=== PATIENT | female | born 1975 | race Caucasian/White ===

== ENCOUNTER → 2016-12-22 19:25 | Outpatient (CLI) | payer OTHER | END | disposition home or self-care (01) | LOC: D.LABREF 19:25 | DX: L98.9 Disorder of the skin and subcutaneous tissue, unspecified (principal) ==

== ENCOUNTER → 2016-12-30 19:19 | Outpatient (CLI) | payer OTHER | END | disposition home or self-care (01) | LOC: D.LABREF 19:19 | DX: D22.9 Melanocytic nevi, unspecified (principal) ==

== ENCOUNTER 2017-08-02 06:24 | Day surgery (SDC) | payer OTHER ==
[2017-08-01 15:47] LABS: HEMATOCRIT 36.8 % (36.0-48.0); HEMOGLOBIN 12.2 g/dL (12-16); MCH 32.6 pg (26.0-34.0); MCHC 33.2 g/dL (31.0-37.0); MCV 98.4 fL (80.0-100.0); MEAN PLATELET VOLUME 9.1 fL (7.4-10.4); RBC 3.74 10x6/uL (4.00-5.40); RDW 12.7 % (11.5-14.5); WBC 6.9 10x3/uL (4.8-10.8)
[2017-08-02] VITALS (9 sets, daily range): BP systolic 107–117; BP diastolic 65–75
[~2017-08-02 06:24] MED LIST: HYDROCODON-ACE1 EAC7 PO
--- NOTE | 2017-08-02 17:10 | NUR ---
PT REQUESTS PAIN RX. ANESTHESIA ADVISED. ORDER REC'D.
--- NOTE | 2017-08-02 17:27 | NUR ---
NORCO 5 ONE PO GIVEN.
--- NOTE | 2017-08-02 19:49 | NUR ---
RECEIVED PT VIA STRETCHER FROM POST D&C PER DR CHANG, PT TO ROOM 1215, PT TRANSFERS SELF TO TO BED WITH NO DIFFICULTY, IV IN IN LEFT WRIST INTACT WITH NO REDNESS OR EDEMA, LR TO PUMP PER MD ORDERS, VS INITIATED, PT C/O CRAMPING, INFORMED PT THAT I WILL SEE WHAT IS ORDERED FOR PAIN AND BRING IT IN, PT VERBALIZES UNDERSTANDING, PT INST TO USE CALL LIGHT WHEN NEEDING TO GET UP TO VOID, PT VERBALIZES UNDERSTANDING, LIGHT BLEEDING NOTED ON CRUZ PAD, POC DISCUSSED WITH PT, PT DENIES QUESTIONS, PT ORIENTED TO ROOM, BED IN LOW POSITION, SIDE RAILS X 2, CALL LIGHT IN REACH, S/O AT BEDSIDE
--- NOTE | 2017-08-02 20:05 | NUR ---
ADM TORADOL SIVP PER MD ORDERS, SEE EMAR, PT REQUESTED AND SERVED [place] SOD[place], DENIES FURTHER NEEDS AT THIS TIME
--- NOTE | 2017-08-02 20:35 | NUR ---
PT COMPENSATION AGENT LIGHT, PT UP TO BR WITH ASSISTANCE, GAIT STEADY, VOIDED 900 MLS OF BLOOD TINGED URINE IN [place] HAT, SEVERAL LARGE CLOTS NOTED, PT CLEANED UP WITH WET WARM WASH CLOTS, CRUZ PAD AND PANTIES PLACED, PT BACK TO BED, INFORMED PT THAT I WILL BE KEEPING HER FOR A LITTLE BIT LONGER BEFORE DISCHARGE TO WATCH HER BLEEDING, PT VERBALIZES UNDERSTANDING, DENIES NEEDS AT THIS TIME
--- NOTE | 2017-08-02 20:45 | NUR ---
DR CHARLENE MADERA
--- NOTE | 2017-08-02 21:02 | NUR ---
PT WATCHING TV, INFORMED PT THAT I PUT A CALL INTO DR CHANG, PT VERBALIZES UNDERSTANDING, DENIES NEEDS AT THIS TIME, S/O AT BEDSIDE
--- NOTE | 2017-08-02 21:25 | NUR ---
DR CHANG CALLS UNIT, REPORT OF VS, OUTPUT, LARGE MULTIPLE CLOTS/BLEEDING, ADM TORADOL, RECEIVED IN REPORT FROM RR THAT PT HAD RECEIVED METHERGINE, AND WHEN TO ADM DOXYCYCLINE, ORDERS TO GO AHEAD AND ADM DOXYCYCLINE, DO NOT GIVE METHERGINE SINCE IT WAS GIVEN IN SURGERY PER REPORT FROM RR NURSE AND ANESTHESIA RECORDS, MAY KEEP PT OVERNIGHT IF PT AND I FEEL LIKE SHE NEEDS TO STAY DUE TO BLEEDING, ADM AMBIEN 5MG FOR SLEEP IF PT DECIDES SHE WANTS TO STAY ALL NIGHT
--- NOTE | 2017-08-02 22:05 | NUR ---
PT UP TO BR BY SELF, GAIT STEADY, MOD BLEEDING NOTED ON PAD AND BLUE CHUX, PT VOIDED 300 MLS OF LIGHT BLOOD TINGED URINE BY SELF WITH NO DIFFICULTY, NO CLOTS NOTED AT THIS TIME, CRUZ CARE DONE WITH WET WARM WASH CLOTHS, ASSISTED PT WITH CRUZ PAD AND PANTIES, PT BACK TO BED, INFORMED PT THAT I WILL CONTINUE TO WATCH BLEEDING FOR AT LEAST ANOTHER HOUR BEFORE DECIDING ON D/C, PT VERBALIZES UNDERSTANDING, REQUESTED AND SERVED SANDWICH TRAY TO PT AND S/O, PT DENIES FURTHER NEEDS
--- NOTE | 2017-08-02 22:34 | NUR ---
PT WATCHING TV, SPOUSE RAN HOME TO FEED THE DOGS, PT REPORTS "FEELING FINE", INFORMED PT THAT I WILL BE BACK SHORTLY AND WE WILL CHECK BLEEDING, PT VERBALIZES UNDERSTANDING, DENIES NEEDS AT THIS TIME
--- NOTE | 2017-08-02 23:08 | NUR ---
PT UP TO BR BY SELF, GAIT STEADY, SCANT VAG BLEEDING NOTED, NO CLOTS, PT REQUESTING TO BE DISCHARGED NOW, INFORMED PT THAT I WILL GET PAPERWORK TOGETHER AND D/C HER HOME, S/O IN ROOM
[2017-08-02] MEDS ORDERED: TYLENOL #4 W/CO1 TAB PO (23:26)
--- NOTE | 2017-08-02 23:35 | NUR ---
PT READY TO GO HOME, WENT OVER ALL D/C PAPERWORK WITH PT, PT VERBALIZES UNDERSTANDING, PT PROVIDED ALL PAPERWORK AND PRESCRIPTION, IV D/C'ED, TIP INTACT, PRESSURE HELD PER PT, BANDAID APPLIED, PT READY TO GET UP AND GET DRESSED, INFORMED PT THAT I WILL BE BACK IN A FEW MINUTES TO D/C VIA WC, PT VERBALIZES UNDERSTANDING, DENIES FURTHER NEEDS OR QUESTIONS AT THIS TIME, FOB AT BEDSIDE
--- NOTE | 2017-08-02 23:47 | NUR ---
PT D/C/ED VIA WC PER [facility] RN, SPOUSE AT SIDE, PT HAS ALL BELONGINGS AND PAPERWORK IN HAND
--- NOTE | 2017-10-04 08:11 | OP ---
PATIENT NAME: SHAINA JOHNSTON MEDICAL RECORD: [id number] :77 LOCATION:[facility] ADMISSION DATE: SURGEON: PING CHANG MD DATE OF OPERATION: 08/02/2017 PREOPERATIVE DIAGNOSIS: Missed . POSTOPERATIVE DIAGNOSIS: Missed . PROCEDURE PERFORMED: Dilation and evacuation. SURGEON: Ping Chang MD ANESTHESIOLOGIST: Donta Harris MD ANESTHESIA: General anesthetic with endotracheal intubation. FINDINGS: Uterus approximately 10-week size, moderate amounts of products of conception returned. Vaginal vault is unremarkable. ESTIMATED BLOOD LOSS: Less than or equal to 100 cc. FLUIDS: 950 cc of LR. URINE OUTPUT: Quantity sufficient prior to the procedure. COMPLICATIONS: None. DRAINS: None. INDICATIONS: The patient is a 41-year-old female with missed . The patient has been given options and desires definitive therapy for missed . DESCRIPTION OF PROCEDURE: After informed consent was assured, the patient was taken to the operating room, anesthetic was obtained without difficulty. The patient is now placed in stirrups and prepped and draped. A speculum was introduced and the cervix grasped. The cervix was dilated to accommodate a curved suction curette, which was passed to the fundus and suction applied. Products of conception removed on several passes. Sharp curettage was performed until good cry was obtained throughout. A single pass with the suction device removed all remaining clot and debris after curettage was performed. Sponge, lap and needle count was correct times 2. Single-tooth tenaculum was removed from the cervix and adequate hemostasis is noted. The patient was taken down from the stirrup and went to the recovery area in stable condition. TRANSINT:[id number] Voice Confirmation ID: [id number] DOCUMENT ID: [id number] OPERATIVE REPORT [id number] SHAINA JOHNSTON PING CHANG MD at 0811 CC: [id number] DICTATION DATE: 10/03/17714 CAVING GUIDE: 10/03/17 0838 [facility] 08/02/17 [facility] [address] [place] [address]
== END 2017-08-02 23:47 | disposition home or self-care (01) ==
LOC: D.OPS 06:24 → D.PAN 13:00 → D.OPS 13:00 → D.WS 19:30 → D.OPS 23:47
PROVIDERS: Anesthesiology
DX: O02.1 Missed abortion (principal); Z01.812 Encounter for preprocedural laboratory examination

== ENCOUNTER → 2018-08-02 15:37 | Outpatient (CLI) | payer OTHER ==
[~2018-08-02 15:37] MED LIST changes: +TYLENOL #4 W/CO1 TAB PO
== END | disposition home or self-care (01) ==
LOC: D.LDO 15:37
DX: O21.9 Vomiting of pregnancy, unspecified (principal); Z3A.08 8 weeks gestation of pregnancy

== ENCOUNTER → 2018-11-22 10:49 | Outpatient (CLI) | payer OTHER ==
[~2018-11-22 10:49] MED LIST changes: +PREPLUS CA-FE1 EACH PO
[2018-11-22 11:42] LABS: APPEARANCE CLEAR (CLEAR); BILIRUBIN NEGATIVE (NEGATIVE); COLOR YELLOW (YELLOW); GLUCOSE NEGATIVE (NEGATIVE); KETONE NEGATIVE (NEGATIVE); NITRITE NEGATIVE (NEGATIVE); PROTEIN NEGATIVE (NEGATIVE); UROBILINOGEN NORMAL (NORMAL)
== END | disposition home or self-care (01) ==
LOC: D.LDO 10:49
PROVIDERS: Obstetrics & Gynecology
DX: O26.892 Other specified pregnancy related conditions, second trimester (principal); Z3A.24 24 weeks gestation of pregnancy

== ENCOUNTER → 2019-01-26 10:23 | Outpatient (CLI) | payer SELFPAY ==
[2019-01-26 11:25] LABS: APPEARANCE CLEAR (CLEAR); BACTERIA FEW /hpf (NONE SEEN); BILIRUBIN NEGATIVE (NEGATIVE); COLOR YELLOW (YELLOW); EPITHELIAL CELLS 0-5 /hpf (0-5); GLUCOSE 100 mg/dL (NEGATIVE); KETONE NEGATIVE (NEGATIVE); NITRITE NEGATIVE (NEGATIVE); PROTEIN NEGATIVE (NEGATIVE); UROBILINOGEN NORMAL (NORMAL); WHITE CELLS - URINE OCC /hpf (0-5)
== END | disposition home or self-care (01) ==
LOC: D.LDO 10:23
PROVIDERS: ATTEND Obstetrics & Gynecology
DX: O26.893 Other specified pregnancy related conditions, third trimester (principal); Z3A.33 33 weeks gestation of pregnancy; M79.89 Other specified soft tissue disorders

== ENCOUNTER → 2019-02-06 09:20 | Outpatient (CLI) | payer SELFPAY | END | disposition home or self-care (01) | LOC: D.LDO 09:20 | PROVIDERS: ATTEND Obstetrics & Gynecology | DX: O09.513 Supervision of elderly primigravida, third trimester (principal); Z3A.35 35 weeks gestation of pregnancy ==

== ENCOUNTER → 2019-02-09 09:20 | Outpatient (CLI) | payer SELFPAY ==
[~2019-02-09 09:20] MED LIST changes: +CLEOCIN HCL300 MG PO; +PERCOCET 7.5/321 TAB PO; +TANDEM DUAL AC106 MG PO
== END | disposition home or self-care (01) ==
LOC: D.LDO 09:20
DX: O09.523 Supervision of elderly multigravida, third trimester (principal); Z3A.35 35 weeks gestation of pregnancy

== ENCOUNTER → 2019-02-13 09:45 | Outpatient (CLI) | payer SELFPAY | END | disposition home or self-care (01) | LOC: D.LDO 09:45 | DX: O26.893 Other specified pregnancy related conditions, third trimester (principal); Z3A.36 36 weeks gestation of pregnancy ==

== ENCOUNTER → 2019-02-16 11:52 | Outpatient (CLI) | payer SELFPAY ==
[~2019-02-16 11:52] MED LIST changes: -CLEOCIN HCL300 MG PO; -PERCOCET 7.5/321 TAB PO; -TANDEM DUAL AC106 MG PO
== END | disposition home or self-care (01) ==
LOC: D.LDO 11:52
PROVIDERS: ATTEND Obstetrics & Gynecology
DX: O09.513 Supervision of elderly primigravida, third trimester (principal); Z3A.36 36 weeks gestation of pregnancy

== ENCOUNTER → 2019-02-20 11:25 | Outpatient (CLI) | payer SELFPAY | END | disposition home or self-care (01) | LOC: D.LDO 11:25 | PROVIDERS: ATTEND Obstetrics & Gynecology | DX: O09.513 Supervision of elderly primigravida, third trimester (principal); Z3A.27 27 weeks gestation of pregnancy ==

== ENCOUNTER → 2019-02-23 09:01 | Outpatient (CLI) | payer OTHER | END | disposition home or self-care (01) | LOC: D.LDO 09:01 | PROVIDERS: ATTEND Obstetrics & Gynecology | DX: O09.513 Supervision of elderly primigravida, third trimester (principal); Z3A.37 37 weeks gestation of pregnancy ==

== ENCOUNTER → 2019-02-27 12:34 | Outpatient (CLI) | payer OTHER ==
[~2019-02-27 12:34] MED LIST changes: +CLEOCIN HCL300 MG PO; +PERCOCET 7.5/321 TAB PO; +TANDEM DUAL AC106 MG PO
== END | disposition home or self-care (01) ==
LOC: D.LDO 12:34
PROVIDERS: ATTEND Obstetrics & Gynecology
DX: O09.513 Supervision of elderly primigravida, third trimester (principal)

== ENCOUNTER 2019-02-28 05:19 | Inpatient (IN) | payer OTHER ==
[~2019-02-28] VITALS: Ht 165.1 cm; Wt 102.1 kg
[2019-02-28] VITALS (20 sets, daily range): BP systolic 80–112; BP diastolic 45–71; Ht 165.1 cm; Wt 102.1 kg
[~2019-02-28 05:19] MED LIST changes: -CLEOCIN HCL300 MG PO; -PERCOCET 7.5/321 TAB PO; -TANDEM DUAL AC106 MG PO
[2019-02-28 05:59] LABS: HEMATOCRIT 32.4 % (36.0-48.0); HEMOGLOBIN 10.9 g/dL (12-16); MCH 32.2 pg (26.0-34.0); MCHC 33.6 g/dL (31.0-37.0); MCV 95.9 fL (80.0-100.0); MEAN PLATELET VOLUME 9.8 fL (7.4-10.4); RBC 3.38 10x6/uL (4.00-5.40); RDW 13.9 % (11.5-14.5)
--- NOTE | 2019-02-28 08:49 | NUR ---
FUNDUS PALPATED: FIRM AND MIDLINE.
--- NOTE | 2019-02-28 09:15 | NUR ---
ASSESSMENT COMPLETED. SEE FLOWSHEET. FUNDUS FIRM, U/1, MODERATE RUBRA LOCHIA, NO CLOTS EXPELLED. ABDOMEN PALPATES SOFT. PT HAS LARGE WHITE DRESSING OVER LOW TRANSVERSE INCISION, C/D/I. ICE PACK PLACED OVER GOWN TO INCISION. PT DENIES NAUSEA, VOMITING, OR SOB, OR DIFFICULTY BREATHING. SIG OTHER AT BEDSIDE. LEMON [place] SODA SERVED TO PT PER HER REQUEST. SRUP X2, CALL LIGHT AND PHONE WITHIN REACH. SEE EMAR FOR ALL MEDS ADM BY THIS RN.
--- NOTE | 2019-02-28 11:25 | NUR ---
FUNDUS FIRM, U/1, SMALL RUBRA LOCHIA, NO CLOTS EXPELLED. INCENTIVE SPIROMETER DONE X 3, WELL. COUGHING EXERCISES DONE BY PT WELL. PT REPORTS PAIN "NEVER REALLY WENT AWAY, BUT IT FEELS LIKE IT IS STARTING TO HURT AGAIN", RATING PAIN 5/10. ICE PACK OVER GOWN TO INCISION. ABDOMEN PALPATES SOFT.
--- NOTE | 2019-02-28 11:45 | NUR ---
DR. CHANG CALLS TO UNIT, REPORT GIVEN TO MD THAT PT HAS REPORTED TORADOL AND DILAUDID ADM AT 0925 THIS AM HELPED A LITTLE, BUT REPORTS PAIN HAS STARTED TO COME BACK, RATING PAIN 5/10. TELEPHONE ORDER RECEIVED TO STOP FIRST DILADID ORDERS, AND REPLACE WITH DILAUDID 2 MG IV EVERY 4HRS PRN FOR MILD TO MODERATE PAIN, AND MAY ADM DILAUDID 4 MG IV EVERY 4HRS PRN FOR MODERATE TO SEVERE PAIN, MAY ADMINISTER UP TO 8 MG/HR.
--- NOTE | 2019-02-28 12:37 | NUR ---
PT REPORTS NO SOB, OR DIZZINESS, OR DIFFICULTY BREATHING. PT AWAKE AND TALKING WITH RN. BP'S NOTED. PT DENIES NAUSEA. Hali HEALY RN REQUESTED TO ROOM. PHONE CALL MADE TO DR. CHANG WITH REPORT GIVEN TO OF BP'S SINCE 1130, AND MHR REPORTED TO MD, AND O2 SAT'S. RESP EVEN AND UNLABORED AT 15/MIN. REPORT TO MD THAT ONLY 3 MG OF DILUDID WAS ADMINISTERED THIS TIME FOR PT'S C/O INCREASED PAIN, RATING 10/10, ABDOMEN PALPATING SOFT, WITH FUNDUS FIRM, SMALL RUBRA LOCHIA, PERIPADS CHANGED. PT REPORTS THE PAIN MEDICATION IS STARTING TO MAKE HER DROWSY. REPORT TO MD PT IS RECEIVING 20 UNITS PITOCIN AT 125 ML/HR. DR. CHANG STATES HE THINKS THIS IS A RESULT OF THE DILAUDID ADM, PT'S HEART RATE IS REMAINING STABLE IN THE 80'S-90'S POST OP, WITH OCCASIONAL LOWER 100'S MHR. NO NEW ORDERS RECEIVED, WILL CONTINUE TO MONITOR PT POST OP SECTION, AND POST PAIN MEDICATION ADM. PT'S AT BEDSIDE.
--- NOTE | 2019-02-28 12:48 | NUR ---
BP NOTED 91/50, MHR 89, O2 SAT 95 % ON ROOM AIR. RESP 16/MIN, EVEN AND UNLABORED.
--- NOTE | 2019-02-28 14:10 | NUR ---
REPORT CALLED TO DR. CHANG OF R 110'S-120'S. PT HAS ADEQUATE OUTPUT, PAIN IN UNDER CONTROL, BLEEDING IS SMALL, ABD PALPATES SOFT, FUNDUS FIRM, U/1, NO CLOTS. TELEPHONE ORDER RECEIVED TO DRAW H&H.
--- NOTE | 2019-02-28 15:00 | NUR ---
PHONE CALL MADE TO DR. CHANG'S CELL PHONE, NO ANSWER. WILL CALL BACK.
--- NOTE | 2019-02-28 15:05 | NUR ---
LAB HERE TO DRAW H & H.
[2019-02-28 15:08] LABS: HEMATOCRIT 30.5 % (36.0-48.0); HEMOGLOBIN 10.2 g/dL (12-16)
--- NOTE | 2019-02-28 15:30 | NUR ---
PT TRANSFERRED TO 1278 BY BED, PT MOVING SELF WITH MINIMAL ASSISTANCE. TRANSFERRED FROM BED SHE WAS ON IN 1227, TO BED IN 1278. SCD'S PLUGGED IN, WITH IV PITOCIN 20 UNITS INFUSING ON PUMP AT 125 ML/HR, ABDOMEN PALPATING SOFT, SMALL RUBRA LOCHIA, NO CLOTS. CLEAN TOWELS/CHUX, CLEAN GOWN/LINENS. NEW ICE PACK PLACED OVER GOWN TO INCISION. PT RATING PAIN TO INCISION NOW 5/10, BURNING AND CRAMPING. MEDICATION ADM RECORD REVIEWED WITH PT. PT DENIES SOB, DIFFICULTY BREATHING, DIZZINESS, OR NAUSEA. DEAL CATH CONTINUES TO DRAIN DARK YELLOW URINE. PT DENIES ALL OTHER NEEDS AT THIS TIME. SR UP X2, CALL LIGHT AND PHONE WITHIN REACH.
--- NOTE | 2019-02-28 17:10 | NUR ---
DR. CHANG IN ROOM SPEAKING WITH PT REGARDING ELEVATED MHR, ADHESIONS DURING SURGERY, AND PLAN OF CARE.
--- NOTE | 2019-02-28 17:15 | NUR ---
CT CALLS THE UNIT, AND REQUESTS BUN/CREATININE TO BE RUN FOR CHEST PE PROTOCOL. KACI IN THE LAB NOTIFIED.
[2019-02-28 17:24] LABS: CREATININE - SERUM 0.7 mg/dL (0.6-1.3)
--- NOTE | 2019-02-28 17:50 | NUR ---
CT HERE TO TAKE PT FOR SCAN.
--- NOTE | 2019-02-28 18:09 | NUR ---
RECEIVED PT FROM CT. PT DENIES SOB, DIZZINES, OR DIFFICULTY BREATHING. O2 SAT MONITOR IS 94%. PT CONTINUES TO USE INCENTIVE SPIROMETER AND COUGHING AND DEEP BREATHING EXERCISES WELL. BP 91/52, P125, R 18. Kanchan HYMAN LPN IN ROOM SPEAKING WITH PT REGARDING CARE. SRUP X2, CALL LIGHT AND PHONE WITHIN REACH.
--- NOTE | 2019-02-28 19:55 | NUR ---
PT. SITTING UP IN BED WITH HOB AT 30 DEGREES AND HOLDING BABY. FEMALE TOOK IN ORDER FOR ASSESSMENT TO BE DONE. AWAKE AND ORIENTED. SKIN WARM AND DRY. PT. INQUIRING WHEN SHE CAN EAT. INFORMED WOULD TRY TO GET RESULTS OF IMAGING TEST DONE AND THEN WE WOULD PROCEDE FROM THERE. DENIES ANY PAIN BUT STATES SHE SOME NAUSEA BUT SHE THINKS IF FROM NOT EATING. ABD. INCISION NOTED ON LOWER ABD. WITH LARGE DRESSING COVERING. DRESSING DRY AND INTACT. LOCHIA RUBRA SCANT. DEAL PATENT AND DRAINING WITH 75CC NOTED IN URINE METER AND BAG. SCDS ON AND FUNCTIONAL TO LOWER LEG. ICE CAP NOTED ON ABD. DRESSING. ENCOURAGED COUGH AND DEEP BREATHING. ASKED PT. ABOUT INCENTIVE SPIROMETER AND PT. REPORTS THAT SHE IS USING EVERY 30 MINUTES AND ABLE TO ACHIEVE OVER 2000 ACCORDING TO PT. BREATH SOUNDS CLEAR AND BOWEL SOUNDS AUDIBLE.
--- NOTE | 2019-02-28 20:13 | NUR ---
DR. CHANG CALLED AND INFORMED OF IMAGING REPORT. STATES TO PROCEDE WITH NORMALIZING. ORDERS. RECEIVED.
--- NOTE | 2019-02-28 20:14 | NUR ---
WHEN DR. CHANG CONTACTED WITH IMAGING RESULTS HE INQUIRED ABOUT PT'S VITAL SIGNS AND SHIFT ASSESSMENT VITAL SIGNS RELAYED TO MD. MD MENTIONED [facility] MATERNAL TACHYCARDIA STILL PRESENT WE COULD PROCEDE WITH NORMALIZING.
--- NOTE | 2019-02-28 20:23 | NUR ---
POC EXPLAINED TO PT. SANDWICH TRAY SERVED. BABY IN ROOM WITH FEMALE HOLDING AT PRESENT.
--- NOTE | 2019-02-28 20:24 | NUR ---
REPORT GIVEN TO Sarah DAY RN. TRANSFER OF CARE ACHIEVED.
--- NOTE | 2019-02-28 22:15 | NUR ---
PATIENT USING THE BREAST PUMP, DEAL CATHETER REMOVED WITHOUT INCIDENT 200ML JASON URINE NOTED IN CHAMBER. FRESH ICE PACK TO ABDOMEN, BED REMAINS LOCKED IN LOW POSITION, CALL HERNÁNDEZ AND TRAY TABLE IN REACH, PT ENCOURAGED TO CALL WITH ANY NEEDS. SCD BOOTS REMOVED.
--- NOTE | 2019-02-28 22:48 | NUR ---
INFANT SWADDLE PER PT REQUEST AND PLACED IN OPEN CRIB AT BEDSIDE. PAIN MEDICATION ADMINISTERED PER PT REQUEST, SEE EMAR
--- NOTE | 2019-02-28 23:50 | NUR ---
PATIENT RESTING QUIETLY WITH EYES CLOSED, INFANT REMAINS AT BEDSIDE IN OPEN CRIB. BED LOCKED IN LOW POSITION, SIDE RAILS UPX2, CALL HERNÁNDEZ AND TRAY TABLE IN REACH. WILL CONTINUE TO MONITOR
[2019-03-01] VITALS (8 sets, daily range): BP systolic 105–132; BP diastolic 56–79
--- NOTE | 2019-03-01 00:10 | NUR ---
PT ASSISTED UP TO BATHROOM WITH STEADY GAIT, VOIDED 100ML URINE WITHOUT DIFFICULTY, PERICARE DONE AND FRESH PAD AND PANTIES PLACED. PT BACK TO BED AND ENCOURAGED TO CALL WITH ANY FURTHER NEEDS.
--- NOTE | 2019-03-01 00:10 | NUR ---
BLEEDING SMALL,RUBRA, NO CLOTS NOTED.
--- NOTE | 2019-03-01 02:45 | NUR ---
PATIENT RESTING QUIETLY WITH EYES CLOSED, RESPIRATIONS EVEN AND NON LABORED, REMAINS AT BEDSIDE IN OPEN CRIB. NO DISTRESS NOTED, WILL CONTINUE TO MONITOR
--- NOTE | 2019-03-01 04:22 | NUR ---
PATIENT ASSISTED UP TO BATHROOM WITH STEADY GAIT, VOIDED WITHOUT DIFFICULTY APPX 100ML URINE, CLEAN PAD AND PANTIES PLACED AND PT BACK TO BED. PAIN MEDICATION ADMINISTERED AND INFANT CHAN TO PT FOR . ENCOURAGED TO CALL WITH ANY FURTHER NEEDS.
--- NOTE | 2019-03-01 04:22 | NUR ---
BLEEDING SMALL, RUBRA WITH ONE SMALL QUARTER SIZED CLOT NOTED
[2019-03-01 06:51] LABS: BASOPHILS 0.1 % (0-2); EOSINOPHILS 0.2 % (0-7); IMMATURE GRANULOCYTES 0.7 % (0-5); LYMPHOCYTES 12.2 % (15-50); MCH 32.3 pg (26.0-34.0); MCHC 33.3 g/dL (31.0-37.0); MCV 96.8 fL (80.0-100.0); MEAN PLATELET VOLUME 9.8 fL (7.4-10.4); MONOCYTES 6.3 % (2-11); NEUTROPHILS 80.5 % (40-80); RDW 14.3 % (11.5-14.5)
--- NOTE | 2019-03-01 07:00 | NUR ---
REPORT TO AM SHIFT TO ASSUME PATIENT CARE.
[2019-03-01 07:09] LABS: RBC 2.17 10x6/uL (4.00-5.40)
--- NOTE | 2019-03-01 07:18 | NUR ---
CRITICAL HEMOGLOBIN OF 7 CALLED FROM LAB TO THIS RN. WILL ASSESS PT AND NOTIFY MD.
[2019-03-01 07:24] LABS: RAPID PLASMA REAGIN Non Reactive (Non Reactive)
[2019-03-01 07:31] LABS: PLATELET COUNT 178 10x3/uL (130-400)
--- NOTE | 2019-03-01 07:36 | NUR ---
THIS RN TO ROOM FOR SHIFT ASSESSMENT AND VS. PT SITTING UP IN BED, SKIN TONE NOTED TO BE PALE. PT AAOx3. PT RATES PAIN 3/10. SHIFT ASSESSMENT COMPLETED, VS OBTAINED, SEE FLOWSHEET FOR DOC. TACHYCARDIA NOTED. PT REPORTS DIZZINESS UPON STANDING LAST TIME UP TO BR. SALINE LOCK PIV IN RIGHT FOREARM IS C/D/I WITH NO REDNESS, SWELLING, OR DRAINAGE. FF, ML, U/U. SMALL RUBRA LOCHIA NOTED TO PERIPADS. NO CLOTS. PT INSTRUCTED ON LOCHIA AND S/S TO REPORT. UNDERSTANDING VERBALIZED. MILD GENERALIZED EDEMA TO LE BILAT, NON-PITTING. NEGATIVE HOMANS SIGN. PT INSTRUCTED ON POC, UNDERSTANDING VERBALIZED. SRUx2, CL IN REACH. SIG OTHER AT BEDSIDE. AFSHAN RN TO ROOM AT THIS TIME. WILL CONT TO MONITOR.
--- NOTE | 2019-03-01 07:48 | NUR ---
DR CHANG PHONED WITH REPORT ON PT H/H, VS AND ASSESSMENT, INCLUDING PT C/O DIZZINESS ON STANDING WHEN UP TO BR. ORDER RECEIVED TO TYPE/CROSS 4UNITS PRBC. TRANSFUSE 2 UNITS PRBC NOW, AND HOLD 2 UNITS. DRAW 8 HOUR POST TRANSFUSION CBC. STATES WILL ROUND ON PATIENT SHORTLY.
--- NOTE | 2019-03-01 08:06 | OP ---
PATIENT NAME: SHAINA JOHNSTON MEDICAL RECORD: [id number] :77 LOCATION:[id number] ADMISSION DATE:02/28/19 SURGEON: PIETRO CHANG MD DATE OF OPERATION: 02/28/2019 PREDELIVERY DIAGNOSES: 1. at 38 weeks' gestation. 2. Advanced maternal age. 3. History of prior section. POST-DELIVERY DIAGNOSES: 1. at 38 weeks' gestation. 2. Advanced maternal age. 3. History of prior section. 4. Severe pelvic adhesive disease. PROCEDURE: Repeat low transverse section. ATTENDING: Pietro Chang MD THERAPY COORDINATOR: Ariel Reyes. ANESTHESIA: Spinal. FINDINGS: Viable male infant, vertex presentation, Apgars were 8 and 9, weight 7 pounds 2 ounces. Dense adhesions of the anterior uterine body to the rectus belly. Dense omental adhesions across the surface of the uterus. SPECIMEN REMOVED: Placenta. SPECIMEN DISPOSITION: Discarded. ESTIMATED BLOOD LOSS: 800 cc. FLUIDS: 1300 cc of lactated Ringer's. URINE OUTPUT: 60 cc of clear urine. COMPLICATIONS: None. DRAINS: Gold to gravity. INDICATIONS: The patient is a 43-year-old female at 38 weeks and 6 days. The patient is consented for a section. Risks for being advanced maternal age. The patient understands risks, benefits and limitations of procedure and wishes to proceed. DESCRIPTION OF PROCEDURE: After informed consent was assured, the patient was taken to the operating room where anesthetic was obtained. The patient was now prepped and draped in the usual sterile fashion. After assessment of the anesthetic, an incision was made over the old scar and carried down to the underlying layer of the fascia. The fascia was opened in the midline and the incision extended laterally with Jennings scissors. Rectus bellies were densely approximated in the midline. The juxtaposition of both rectus bellies was grasped with Allis clamps and elevated, and using a scalpel, an opening was OPERATIVE REPORT [id number] SHAINA JOHNSTON made. Dense adhesions are carried down from the rectus belly to the surface of the uterus. During the dissection, the serosa of the anterior uterine body was incised. Once the adhesions are mobilized and the lower uterine segment anatomy restored to normal appearance, the bladder blade was inserted and a bladder flap developed. Bladder blade was now reinserted in the space and a low transverse hysterotomy was performed and extended with bandage scissors. Infant was delivered onto the abdomen atraumatically. The cord was doubly clamped and cut and was passed to the attendant. Cord gas sample as well as cord blood sample are sent. At this point, the pelvis was explored and the uterus was densely adhesed and the repair was performed in situ. Ring forceps were used to grasp the lower uterine segment. The uterus was now closed with running locked chromic stitch. Once hemostasis has been achieved, inspection reveals multiple slow bleed from raw sites. FloSeal was placed over this to obtain hemostasis. The rectus bellies were reapproximated with horizontal mattress stitch in the midline and the fascia was now closed in a running stitch with looped PDS. Subcutaneous tissues were irrigated, bleeding vessels cauterized, and the space reapproximated with a plain gut stitch. A 3-0 Monocryl on a Carter needle reapproximate the skins and sterile dressing was applied. Sponge, lap, needle counts were correct times 2. TRANSINT:[id number] Voice Confirmation ID: [id number] DOCUMENT ID: [id number] PIETRO CHANG MD at 0806 CC: [id number] DICTATION DATE: 02/28/19825 REHABILITATION PHYSICIAN: 02/28/19 1229 ADM IN [facility] [address] [place] [address]
--- NOTE | 2019-03-01 08:40 | NUR ---
PT UP TO BR TO VOID. PT DENIES NEED FOR ASSIST. THIS RN REMAINS AT PT'S SIDE. PT INSTRUCTED TO CHANGE POSITIONS SLOWLY, DOES INSTRUCTED. PT DENIES ANY DIZZINESS. VOIDS APPROX 400ML CLEAR YELLOW URINE AND AMBULATES BACK TO BED. WILL INITIATE BLOOD TRANSFUSION ORDERED WITH SECOND RN.
--- NOTE | 2019-03-01 08:45 | NUR ---
BLOOR TRANSFUSION INITIATED BY THIS RN WITH REJI HEAD. PT INSTRUCTED ON S/S TO REPORT. SEE TRANSFUSION FLOWSHEET FOR VITAL SIGNS.
--- NOTE | 2019-03-01 09:33 | NUR ---
THIS RN TO ROOM FOR PT CHECK DURING BLOOD TRANSFUSION. PT DENIES ANY S/S, BUT REPORTS PAIN AT INCISION AND CRAMPING AND REQUESTS PAIN MED. PRN PAIN AUTO ROLLER ORDERED, SEE EMAR FOR DOC. PT DENIES ANY OTHER NEEDS AT THIS TIME. SRUx2, CL IN REACH. SIG OTHER AT BEDSIDE.
--- NOTE | 2019-03-01 10:05 | NUR ---
1ST UNIT PRBC COMPLETE, NS SET TO FLUSH LINE. PT DENIES ANY S/S AT THIS TIME. FRESH ICE WATER GIVEN.
--- NOTE | 2019-03-01 10:45 | NUR ---
SECOND UNIT PRBC INITIATED WITH REJI HEAD. SEE TRANSFUSION FLOWSHEET FOR VS.
--- NOTE | 2019-03-01 11:17 | NUR ---
THIS RN TO ROOM FOR PT CHECK WITH BLOOD TRANSFUSION. PT SITTING UP IN BED HOLDING INFANT, STATES SHE JUST GOT UP TO BR WITH SIG OTHER ASSIST. PT DENIES HEAVY LOCHIA OR CLOTS WITH VOIDING/PERICARE. PT DENIES NEEDS AT THIS TIME. SRUx2, CL IN REACH. WILL CONT TO MONITOR.
--- NOTE | 2019-03-01 12:15 | NUR ---
SECOND UNIT PRBC COMPLETE, PT DENIES S/S. NS SET TO FLUSH LINE. WILL CONT TO MONITOR.
--- NOTE | 2019-03-01 12:55 | NUR ---
NS COMPLETE, IV SALINE LOCKED. PT SITTING UP IN BED, EATING LUNCH. DENIES ANY NEEDS AT THIS TIME. VISITING WITH FAMILY IN ROOM. POC DISCUSSED INCLUDING 8HOUR POST TRANSFUSION CBC. UNDERSTANDING VERBALIZED. SRUx2, CL IN REACH. WILL CONT TO MONITOR.
--- NOTE | 2019-03-01 13:15 | NUR ---
DR. CHANG IN ROOM SPEAKING WITH PT.
--- NOTE | 2019-03-01 13:30 | NUR ---
PT REQUESTS TO GET UP TO THE BATHROOM TO VOID, ALL MONITORS REMOVED. PT OUT OF BED, SLOWLY, GAIT SLOW, BUT STEADY. SIG OTHER REMAINS IN ROOM AT THIS TIME.
--- NOTE | 2019-03-01 14:58 | NUR ---
THIS RN TO ROOM FOR PT CHECK. PT LYING IN BED, SUPINE, HOB 60 DEGREES. PT HOLDING INFANT ON CHEST. PT REPORTS PAIN RATED 7/10, STATES SHE HAS BEEN MOVING AROUND IN BED TRYING TO GET COMFORTABLE, AND SHE IS ABOUT TO GET UP TO BR TO VOID. PT REQUESTING PAIN MEDICATION. PT ADMIN PRN PAIN MED ORDERED, SEE EMAR FOR DOC. PT ALSO PROVIDED WITH FRESH ICE WATER. PT DENIES FURTHER NEEDS, VISITING WITH FAMILY. SRUx2, CL IN REACH. WILL CONT TO MONITOR.
--- NOTE | 2019-03-01 15:52 | NUR ---
THIS RN TO ROOM FOR PT CHECK AND PAIN REASSESS. PT SITTING UP IN BED, TEXTING ON PHONE AND SMILING. PT RATES PAIN 2/10, STATES IT IS MUCH BETTER NOW. PT DENIES NEEDS AT THIS TIME. SRUx2, CL IN REACH.
--- NOTE | 2019-03-01 16:50 | NUR ---
PT CALLS OUT BOOKY LIGHT STATING SHE FEELS HOT, LIKE SHE HAS A FEVER. THIS RN TO ROOM. PT , STATES SHE JUST FEELS HOT WHILE OTHER FAMILY MEMBERS ARE SAYING THEY FEEL COLD. PT ORAL TEMP 98.9. PT REASSURED, INSTRUCTED TO CALL WHEN FINISHED IF SHE STILL FEELS HOT AND WILL RECHECK.
--- NOTE | 2019-03-01 19:39 | NUR ---
SHIFT ASSESSMENT COMPLETED PER FLOWSHEET. PAIN /, 2 TABS PERCOCET GIVEN PER ORDER AND PT REQUEST, REPORTS PAIN IS GENERALIZES ABD AND IS TENDER TO TOUCH IN ALL QUADS, DESCRIBES "SORE." REPORTS THAT SHE IS BELCHING BUT HAS NOT PASSED FLATUS. CURRENTLY SITTING ON EDGE OF BED. DENIES DIZZINESS AND LIGHTHEADEDNESS. REPORTS THAT SHE IS VOIDING WITHOUT DIFFICULTY. STATES THAT FOLLOWING RECEIEVING PRBC UNTIL 1500 SHE FELT "GREAT, BUT AFTER 3 I HAVE STARTED FEELING A LITTLE WEAK." DENIES SOB. FUNDUS FIRM, MIDLINE AND 3U, SCANT TO SMALL RUBRA LOCHIA NOTED TO PERIPAD, NO CLOTS PRESENT FOLLOWING FUNDAL MASSAGE. PREVIOUS PERIPAD THAT PT CHANGED WITH SMALL HALF DOLLAR AREA OF RUBRA LOCHIA PRESENT, NO CLOTS NOTED ON THAT PAD. PT REPORTS THAT LOCHIA HAS BEEN LIGHT ALL DAY. ICE WATER PROVIDED. SIMETHCONE GIVEN PER REQUEST, EDUCATED ON MEDICATION USE, FREQUENCY, AND SIDE EFFECTS. VERBALIZES UNDERSTANDING AND DENIES QUESTIONS. BED IN LOW POSITION WITH UPPER SIDE RAILS RAISED X2. CALL LIGHT AND PHONE WITHIN REACH. WILL NOTIFY DR. CHANG OF ASSESSMENT FINDINGS.
--- NOTE | 2019-03-01 19:47 | NUR ---
DR. CHANG NOTIFIED OF ASSESSMENT FINDINGS, HR IN 130'S. ORDERS REC'D TO GET CBC NOW AND HE WILL BE EN ROUTE TO UNIT. CLOVER IN LAB NOTIFIED AND WILL COME TO UNIT TO DRAW.
--- NOTE | 2019-03-01 20:14 | NUR ---
DR. CHANG ON UNIT.
--- NOTE | 2019-03-01 20:17 | NUR ---
SITTING IN HIGH FOWLERS POSITION, CONVERSING WITH VISITORS. BEEN BACK IN BED FOR 15 MINUTES FOLLOWING VOIDING. HR [id number] CURRENTLY. B/P 110/70.
--- NOTE | 2019-03-01 20:20 | NUR ---
PAIN REASSESSMENT COMPLETED, PAIN 2/10 AT REST. REPORTS DECREASE IN PAIN WHILE AT REST, REPORTS THAT WHEN GETTING UP TO VOID IS "WHEN IT STARTS TO HURT."
--- NOTE | 2019-03-01 20:32 | NUR ---
LAB CALLED FOR CBC RESULTS.
[2019-03-01 20:34] LABS: BASOPHILS 0.1 % (0-2); EOSINOPHILS 0.3 % (0-7); HEMOGLOBIN 7.8 g/dL (12-16); IMMATURE GRANULOCYTES 0.5 % (0-5); LYMPHOCYTES 12.8 % (15-50); MCH 30.7 pg (26.0-34.0); MCHC 33.9 g/dL (31.0-37.0); MCV 90.6 fL (80.0-100.0); MEAN PLATELET VOLUME 9.3 fL (7.4-10.4); MONOCYTES 8.2 % (2-11); NEUTROPHILS 78.1 % (40-80); PLATELET COUNT 228 10x3/uL (130-400); RBC 2.54 10x6/uL (4.00-5.40); RDW 17.4 % (11.5-14.5); WBC 11.7 10x3/uL (4.8-10.8)
--- NOTE | 2019-03-01 20:36 | NUR ---
LAB RESULTS BACK, DR. CHANG NOTIFIED AT BEDSIDE. ORDERS REC'D TO TRANSFUSE 2 UNIT PRBC, AND GIVE TXA ORDERED. DISCUSSING PLAN OF CARE AND ANSWERING QUESTIONS.
--- NOTE | 2019-03-01 20:43 | NUR ---
PATIENT MEDICATED WITH CYTOTEC 200MCG PO AT THIS TIME, EDUCATED ON MEDICATION, ALL QUESTIONS ANSWERED. PT VERBALIZES UNDERSTANDING.
--- NOTE | 2019-03-01 21:00 | NUR ---
PATIENT UP TO BATHROOM, PT C/O DIZZINESS AND SOB. BACK TO BED AND INFANT TO BREAST.
--- NOTE | 2019-03-01 21:13 | NUR ---
RN TO BEDSIDE. PT PREPARING TO BREASTFEED INFANT. INSTRUCTED TO NOTIFY RN WHEN SHE COMPLETES , VERBALIZES UNDERSTANDING. UPDATED ON PLAN OF CARE INCLUDING NEED FOR ADDITIONAL IV ACCESS, VERBALIZES UNDERSTANDING. REPORTS THAT SHE ATTEMPTED TO AMBULATE AROUND ROOM AND BECAME SOB. EDUCATED ON IMPORTANCE OF SAFETY AND USE OF CALL LIGHT FOR ASSISTANCE OOB, VERBALIZES UNDERSTANDING AND DENIES QUESTIONS. BED IN LOW POSITION WITH UPPER SIDE RAILS RAISED X2. CALL LIGHT AND PHONE WITHIN REACH. WILL CONTINUE TO MONITOR AND ASSIST PRN.
--- NOTE | 2019-03-01 21:29 | NUR ---
PT CALLS VIA CALL LIGHT, REPORTS THAT SHE IS DONE . TXA INFUSION INITIATED. PT EDUCATED ON MEDICATION AND POSSIBLE SIDE EFFECTS, VERBALIZES UNDERSTANDING AND DENIES QUESTIONS.
--- NOTE | 2019-03-01 21:35 | NUR ---
SCD BOOTS PLACED TO BLE, PUMP STARTED AND WORKING AT THIS TIME.
--- NOTE | 2019-03-01 21:40 | NUR ---
TXA INFUSION COMPLETED. SECOND PIV STARTED TO LEFT WRIST, 18 G TIMES ONE STICK, EXCELLENT BLOOD RETURN NOTED. COVERED WITH TEGADERM AND SECURED WITH TAPE.
--- NOTE | 2019-03-01 21:54 | NUR ---
1ST UNIT PRBC VERIFIED WITH Sarah DAY, RN AND [employer] RN. VSS. INFUSION BEGAN AT 150 MLS/HR. THIS RN REMAINS AT BEDSIDE AT THIS TIME. PT EDUCATED ON S/S OF REACTION TO REPORT TO RN, VERBALIZES UNDERSTANDING, DENIES QUESTIONS.
--- NOTE | 2019-03-01 22:10 | NUR ---
VSS. TOLERATING PRBC TRANSFUSION WELL, NO S/S OF REACTION NOTED. PRBC RATE INCREASED TO 200 MLS/HR. WILL CONTINUE TO MONITOR.
--- NOTE | 2019-03-01 22:25 | NUR ---
VSS. TOLERATING PRBC INFUSION WELL, NO S/S OF REACTION NOTED. RATE INCREASED TO 250 MLS/HR. WILL CONTINUE TO MONITOR AND ASSIST PRN.
--- NOTE | 2019-03-01 22:57 | NUR ---
V/S REMAIN STABLE, NO S/S OF REACTION NOTED. PT DENIES NEEDS. IN HUSBANDS ARMS. BED IN LOW POSITION WITH UPPER SIDE RAILS RAISED X2. CALL LIGHT AND PHONE WITHIN REACH. WILL CONTINUE TO MONITOR AND ASSIST PRN.
--- NOTE | 2019-03-01 23:08 | NUR ---
PATIENT ASSISTED TO BATHROOM WITH STEADY GAIT, VOIDED WITHOUT DIFFICULTY AND BACK TO BED. SCD BOOTS REAPPLIED. BED LOCKED IN LOW POSITION, SIDE RAILS UP X2, CALL HERNÁNDEZ AND TRAY TABLE IN REACH.
--- NOTE | 2019-03-01 23:20 | NUR ---
1ST UNIT PRBC TRANSFUSION COMPLETED. LINE SWITCHED TO FLUSH. HANDED TO PT FOR . DENIES NEEDS. NO S/S OF TRANSFUSION REACTION NOTED. WILL ADMINISTER 1300 MG TXA PO PER ORDER AT 2340, PT UPDATED ON PLAN OF CARE AND VERBALIZES UNDERSTANDING. DENIES QUESTIONS. BED IN LOW POSITION WITH UPPER SIDE RAILS RAISED X2. CALL LIGHT AND PHONE WITHIN REACH. WILL CONTINUE TO MONITOR.
--- NOTE | 2019-03-01 23:43 | NUR ---
C/O ABD PAIN 04/25, INTERMITTENT ABD CRAMPING WITH CONSTANT BILATERAL UPPER QUADRANT ACHING. 2 TABS PERCOCET GIVEN PER ORDER AND PT REQUEST. ICE WATER PROVIDED. DENIES ADDITIONAL NEEDS AT THIS TIME. INCENTIVE SPIROMETER DONE INDEPENDENTLY WITH GOOD EFFORT. COUGH AND DEEP BREATHING DONE WITH GOOD EFFORT. SCD'S ON BLE. BED IN LOW POSITION WITH UPPER SIDE RAILS RAISED X2. CALL LIGHT AND PHONE WITHIN REACH. WILL CONTINUE TO MONITOR AND ASSIST PRN.
[2019-03-02] VITALS (10 sets, daily range): BP systolic 117–133; BP diastolic 62–84
--- NOTE | 2019-03-02 00:17 | NUR ---
SECOND UNIT PRBC TRANSFUSION INITIATED, VSS. UNIT VERIFIED WITH Sarah DAY RN. PT VERBALIZES S/S OF TO REPORT OF TRANSFUSION REACTION. THIS RN REMAINS AT BEDSIDE. INITIATED TRANSFUSION AT 200 MLS/HR. SIMETHCONE GIVEN PER PT REQUEST. REPORTS THAT SINCE TAKING FIRST DOSE SHE IS NOW PASSING FLATUS.
--- NOTE | 2019-03-02 00:26 | NUR ---
PAIN REASSESSMENT COMPLETED. 11/26, DENIES NEED FOR ADDITIONAL INTERVENTION. RN REMAINS AT BEDSIDE FOR PRBC TRANSFUSION.
--- NOTE | 2019-03-02 02:45 | NUR ---
VSS. FUNDUS FIRM, MIDLINE AND 2U, SMALL AMT RUBRA LOCHIA, NO CLOTS NOTED. SNORING UPON ENTRY, INFANT IN BED WITH PT. AROUSES TO VOISE. PLACED IN OPEN CRIB AND REINFORCED WITH PT THAT WHEN SHE IS SLEEPING MUST BE IN OPEN CRIB, VERBALIZES UNDERSTANDING. CYTOTEC GIVEN PER ORDER. DENIES NEEDS. BED IN LOW POSITION WITH UPPER SIDE RAILS RAISED X2. CALL LIGHT AND PHONE WITHIN REACH. WILL CONTINUE TO MONITOR AND ASSIST PRN.
[2019-03-02 03:46] LABS: BASOPHILS 0.2 % (0-2); EOSINOPHILS 0.4 % (0-7); HEMOGLOBIN 9.2 g/dL (12-16); IMMATURE GRANULOCYTES 0.6 % (0-5); LYMPHOCYTES 10.9 % (15-50); MCH 30.7 pg (26.0-34.0); MCHC 34.1 g/dL (31.0-37.0); MEAN PLATELET VOLUME 9.3 fL (7.4-10.4); MONOCYTES 8.5 % (2-11); NEUTROPHILS 79.4 % (40-80); PLATELET COUNT 201 10x3/uL (130-400); RDW 17.2 % (11.5-14.5); WBC 11.7 10x3/uL (4.8-10.8)
--- NOTE | 2019-03-02 04:26 | NUR ---
UP TO VOID. NOTED TO BE SOB, PT REPORTS THAT SOB WITH ACTIVITY HAS IMPROVED SINCE RECEIVING PRBC'S. C/O ABD AND INCISIONAL PAIN 8-06/26, INCISIONAL PAIN DESCRIBED CONSTANT BURNING AND INTERMITTENT ABD CRAMPING. 2 TABS PERCOCET GIVEN PER ORDER. SIMETHCONE GIVEN PER PT REQUEST. SMALL AMT RUBRA LOCHIA ON PERIPAD, NO CLOTS PRESENT. FUNDUS REMAINS FIRM, MIDLINE AND 2U. ABD LESS DISTENDED THAN NOTED AT BEGINNING OF SHIFT. PT REPORTS THAT SHE SIMETHCONE HAS HELPED HER PASS FLATUS. ICE WATER PROVIDED. DENIES ADDITIONAL NEEDS. INFANT RESTING QUIETLY IN OPEN CRIB. SCD'S ON BLE, COUGH AND DEEP BREATHING DONE WITH GOOD EFFORT, INCENTIVE SPIROMETER DONE WITH GOOD EFFORT. BED IN LOW POSITION WITH UPPER SIDE RAILS RAISED X2. CALL LIGHT AND PHONE WITHIN REACH. WILL CONTINUE TO MONITOR AND ASSIST PRN.
--- NOTE | 2019-03-02 05:06 | NUR ---
PAIN REASSESSMENT COMPLETED. PT RESTING WITH EYES CLOSED, RESPIRATIONS REGULAR AND UNLABORED, NO S/S OF DISTRESS NOTED. BED IN LOW POSITION WITH UPPER SIDE RAILS RAISED X2. CALL LIGHT AND PHONE WITHIN REACH. WILL CONTINUE TO MONITOR AND ASSIST PRN.
--- NOTE | 2019-03-02 06:40 | NUR ---
SITTING IN HIGH FOWLERS POSITION WITH SKIN TO SKIN. DENIES NEEDS. UPDATED ON PLAN OF CARE. VERBALIZES UNDERSTANDING AND DENIES QUESTIONS. SIGNIFICANT OTHER RESTING ON COUCH AT BEDSIDE. BED IN LOW POSITION WITH UPPER SIDE RAILS RAISED X2. CALL LIGHT AND PHONE WITHIN REACH. WILL CONTINUE TO MONITOR AND ASSIST PRN.
--- NOTE | 2019-03-02 07:30 | NUR ---
REPORT GIVEN TO Kyle LEMOS RN.
--- NOTE | 2019-03-02 08:00 | NUR ---
AM ASSESSMENT COMPLETED. SEE FLOW SHEET. FUNDUS FIRM, U/U, ABDOMEN IS PALPATING SOFT, SCANT RUBRA LOCHIA. PT REPORTS SHE DID SEE "A LOT LESS BLEEDING WHEN I JUST GOT UP TO THE BATHROOM TO PEE, AND MY BELLY FEELS A LOT LESS SWOLLEN". PT REPORTS PASSING GAS. DENIES NAUSEA, SHORTNESS OF BREATH, OR DIZZINESS. PT HAS EATEN APPROX 50 % OF BREAKFAST. PT REMINDED OF NOTHING TO EAT OR DRINK AFTER BREAKFAST, PER ORDER OF DR. CHANG. PT HAS LARGE WHITE DRESSING NOTED OVER INCISION, C/D/I. PT STATES SHE HAS NOT HAD A SHOWER YET, SHE ONLY WANTS TO "FRESHEN UP THIS MORNING UNTIL LATER I'LL TAKE A SHOWER". CLEAN LINENS PROVIDED, CLEAN GOWN. PT UP TO BR, TO FRESHEN UP FOR AM CARE. BED LINENS CHANGED AT THIS TIME. PT DENIES ALL OTHER NEEDS. SEE EMAR FOR ALL MEDS ADM BY THIS RN.
--- NOTE | 2019-03-02 12:20 | NUR ---
REPORT CALLED TO CHANG OF REDDENED AREA NOTED ON ABDOMEN AT UMBILICAL AREA, AND SMALL BLISTERS X2, OOZING CLEAR FLUID NOTED TO RIGHT UPPER GROIN, JUST BENEATH THE AREA WHERE BANDAGE FROM C/S WAS REMOVED. STATES "I'LL BE DOWN THERE SHORTLY TO SEE THE PT".
[2019-03-02 12:25] LABS: BASOPHILS 0.1 % (0-2); EOSINOPHILS 0.4 % (0-7); HEMATOCRIT 27.1 % (36.0-48.0); HEMOGLOBIN 9.3 g/dL (12-16); IMMATURE GRANULOCYTES 0.9 % (0-5); LYMPHOCYTES 10.7 % (15-50); MCH 30.8 pg (26.0-34.0); MCHC 34.3 g/dL (31.0-37.0); MCV 89.7 fL (80.0-100.0); MEAN PLATELET VOLUME 9.2 fL (7.4-10.4); MONOCYTES 7.4 % (2-11); NEUTROPHILS 80.5 % (40-80); PLATELET COUNT 217 10x3/uL (130-400); RBC 3.02 10x6/uL (4.00-5.40); RDW 17.5 % (11.5-14.5); WBC 11.7 10x3/uL (4.8-10.8)
--- NOTE | 2019-03-02 12:40 | NUR ---
DR. CHANG IN ROOM, SPEAKING WITH PT. ASSESSMENT DONE BY DR. CHANG.
--- NOTE | 2019-03-02 13:35 | NUR ---
CLINDAMYCIN TAKEN TO ROOM TO ADM. PT STATES "OH, I HAVEN'T BEEN UP TO THE BATHROOM YET, CAN I GET UP TO THE BATHROOM FIRST?". PT ASSISTED UP TO BR. PT STATES SHE WILL CALL OUT FORMING MACHINE ADJUSTER LIGHT WHEN SHE IS READY. FAMILY AT BEDSIDE, TENDING TO .
--- NOTE | 2019-03-02 16:00 | NUR ---
KIM, WOUND CARE NURSE ON UNIT, TO NURSERY TO VISIT PATIENT, PT IS SITTING IN THE BONDING ROOM . AREA TO RIGHT LOWER ABD/GROIN AREA INSPECTED BY WOUND CARE NURSE,
--- NOTE | 2019-03-02 16:30 | NUR ---
DR. CHANG TO CONTRERAS, REPORT GIVEN TO OF WOUND CARE NURSE'S RECOMMENDATION TO APPLY ADAPTIC GAUZE TO RIGHT LOWER ABDOMEN/RIGHT GROIN AREA, WELL REDDENED AREA TO LEFT LOWER ABDOMEN AT EDGE OF WHERE TAPE FROM THE INCISIONAL BANDAGE WAS. STATES "YES, PLEASE DO THAT, ADAPTIC SHOULD WORK WELL, AND SHE WILL BE JUST FINE".
--- NOTE | 2019-03-02 19:20 | NUR ---
PT. AWAKE AND ORIENTED. BREATH SOUNDS CLEAR AND BOWEL SOUNDS AUDIBLE . REPORTS PASSING FLATUS. SALINE LOCK NOTED IN LT WRIST AREA. BRUISING NOTED ON BOTH ARMS AT SITE OF ATTEMPTED IV STARTED. DENIES ANY PAIN IN LOWER EXTREMITIES. SCDS ON AND FUNCTIONAL. ABD. INCISION NOTED WITHOUT DRAINAGE. EVIDENCE OF OLD BLOOD NOTED ON STERI STRIPS. AREA AROUND UMBILICUS APPROX. 8CM WITH LIGHT REDNESS NOTED EXTENDING DOWN RT SIDE. SKIN ABRASIIONS NOTED ON LOWER LT AND RT SIDES OF INCISIONAL AREA WHICH PREVIOUS NURSE STATES WERE NOTED WHEN DRESSING REMOVED. LOCHIA RUBRA SCANT. RATES PAIN A 4 OF 10 ON PAIN SCALE. DISCUSSED PAIN MED ORDERS AND PT. DESIRES PERCOCET TAB 1.
--- NOTE | 2019-03-02 19:32 | NUR ---
PERCOCET TAB ONE GIVEN REQUESTED. TOTAL TYLENOL AMOUNT IN LAST 24 HOURS NOTED 3575MG. NON ADHERING DRESSING APPLIED TO ABRASION AREAS TO LT AND RT SIDE OF INCISIION. .
--- NOTE | 2019-03-02 19:45 | NUR ---
UP TO BATHROOM TO VOID AND THEN INTO HALLWAY TO AMBULATE. GAIT STEADY BUT SLOW.
--- NOTE | 2019-03-02 21:02 | NUR ---
DR. CHANG CALLED UNIT FOR REPORT ON PT. ORDERS RECEIVED.
--- NOTE | 2019-03-02 21:33 | NUR ---
INFANT IN ROOM IN OPEN CRIB ASLEEP. PT. WATCHING TV. ANTIBIOTIC HUNg as ordered.
--- NOTE | 2019-03-02 21:46 | NUR ---
CYTOTEC 200MCG GIVEN ORDERED.
--- NOTE | 2019-03-02 21:50 | NUR ---
RECEIVED REPORT FROM JOVAN ENGLISH RN
--- NOTE | 2019-03-02 22:05 | NUR ---
PT. INFORMED NOT TO GET UP TO BATHROOM WITHOUT CALLING FOR ASSISTANCE. PT. STATES UNDERSTANDING. SIDE RAILS UP X 2 AND CALL LIGHT WITHIN REACH.
--- NOTE | 2019-03-02 22:40 | NUR ---
PT BABY, RATES INC PAIN 2, DENIES NEEDS AT THIS TIME, FOB AT BEDSIDE
--- NOTE | 2019-03-02 23:08 | NUR ---
PT JUST FINISHED FEEDING , VS OBTAINED, ADM LYSTEDA PER MD ORDERS, SEE EMAR, IV CONVERTED TO SALINE LOCK, FLUSHED WITH NS WITH NO DIFFICULTY, PT UP TO BR, VOIDED WITH NO DIFFICULTY, REPORTS 2 SMALL PEA SIZE CLOTS, STATES "NOTHING BAD", PT REQUESTS TO AMB IN [place]
--- NOTE | 2019-03-02 23:20 | NUR ---
PT AMB IN [place], GAIT STEADY, FOB PUSHING INFANT IN OPEN CRIB CART AT PT'S SIDE
--- NOTE | 2019-03-02 23:30 | NUR ---
PT BACK TO ROOM WITH AND FOB
--- NOTE | 2019-03-03 00:21 | NUR ---
PT AWAKE, HOLDING INFANT SKIN TO SKIN, PT C/O INC PAIN AND CRAMPING, ADM PERCOCET PER MD ORDERS, SEE EMAR, PT DENIES FURTHER NEEDS, FOB AT BEDSIDE
--- NOTE | 2019-03-03 01:00 | NUR ---
REPORT TO JOVAN ENGLISH RN
--- NOTE | 2019-03-03 01:05 | NUR ---
LYING ON BACK WITH HOB AT 30 DEGREES. LYING ACROSS PT. LAP. FOB ASSISTING PT. STATES PAIN IS A 1 OF 10 ON PAIN SCALE. SCDS ON AND FUNCTIONAL. DENIES ANY NEEDS AT THIS TIME.
--- NOTE | 2019-03-03 02:45 | NUR ---
PT. LYING ON BACK WITH HOB AT 30 DEGREES. HOLDING AT PRESENT. ICE WATER PROVIDED. PT. DENIES ANY NEEDS AT THIS TIME.
[2019-03-03 03:38] VITALS: BP 121/65
--- NOTE | 2019-03-03 03:38 | NUR ---
PT. LYING ON BACK WITH HOB AT 30 DEGREES. HOLDING . FOB ASLEEP ON SOFA. SCDS ON AND FUNCTIONAL. DENIES ANY NEEDS AT THIS TIME.
--- NOTE | 2019-03-03 04:16 | NUR ---
CLINDAMYCIN COMPLETED AT THIS TIME. IV CONVERTED TO SALINE LOCK. Nydia BOTELLO RN
[2019-03-03 04:55] LABS: HEMATOCRIT 26.8 % (36.0-48.0); MCH 30.3 pg (26.0-34.0); MCHC 33.6 g/dL (31.0-37.0); MCV 90.2 fL (80.0-100.0); MEAN PLATELET VOLUME 9.1 fL (7.4-10.4); RBC 2.97 10x6/uL (4.00-5.40); RDW 16.6 % (11.5-14.5); WBC 9.6 10x3/uL (4.8-10.8)
--- NOTE | 2019-03-03 06:20 | NUR ---
DR. CHANG ON UNIT AND ROUNDING ON PT. VIEWED H/H RESULTS.
--- NOTE | 2019-03-03 06:42 | NUR ---
PT. AWAKE AT PRESENT. IN OPEN CRIB AT BEDSIDE ASLEEP. FOB SLEEPING ON SOFA.
[2019-03-03 07:18] VITALS: BP 118/74
--- NOTE | 2019-03-03 07:18 | NUR ---
RECEIVED PT LYING SUPINE IN BED. AWAKE. VSS. HRRR WITHOUT AUDIBLE MURMUR. BBS CLEAR. BS X 4. ABDOMEN SOFT/NON-DISTENDED. ABDOMINAL INCISION WITH OLD BROWN DRAINAGE NOTED. REDDENED AREA NOTED TO RIGHT SIDE OF ABDOMEN. FUNDUS FIRM AT U/U. RUBRA LOCHIA SMALL AMT. NEG HOMANS' SIGN. PPP. 2+/2+ NON-PITTING EDEMA NOTED TO BLE. PT STATES INCISIONAL PAIN AND ABDOMINAL CRAMPING OF "4" ON 0-10 PAIN SCALE. DECLINES PAIN MED AT THIS TIME. PT STATES PASSING GAS. NO BM YET. SR UP X 2. CALL LIGHT IN REACH.
--- NOTE | 2019-03-03 08:10 | NUR ---
PT AMBULATORY IN ROOM. STATES HAD BM AND PASSED GAS. STATES FEELING BETTER. DENIES NEEDS OR C/O.
[2019-03-03] MEDS ORDERED: CLEOCIN HCL300 MG PO (09:30)
[2019-03-03] MEDS ORDERED: PERCOCET 7.5/321 TAB PO (09:31)
[2019-03-03] MEDS ORDERED: TANDEM DUAL AC106 MG PO (09:31)
--- NOTE | 2019-03-03 10:40 | NUR ---
PT C/O INCISIONAL PAIN/BURNING OF "5" ON 0-10 PAIN SCALE. PERCOCET 5/325 GIVEN PO ORDERED. PT INSTRUCTED ON MED. VERBALIZES UNDERSTANDING.
--- NOTE | 2019-03-03 10:50 | NUR ---
MULTIPLE BLISTERED AREAS NOTED TO PT RIGHT SIDE. REDENED AREAS NOTED TO BOTH RIGHT AND LEFT AREAS OF PANNUS. ADAPTIC DRESSING REMOVED. AREAS NOTED TO BE MOIST. AREAS COVERED WITH PERIPAD TO KEEP AREA DRY FOR NOW. WILL RE-EVALUATE PRIOR TO DISCHARGE.
--- NOTE | 2019-03-03 11:00 | NUR ---
PT AMBULATORY IN HALLS.
--- NOTE | 2019-03-03 12:43 | NUR ---
PT AMBULATORY IN ROOM. PT C/O INCISIONAL/ABDOMINAL PAIN, CRAMPING, BURNING. PERCOCET 5/325 GIVEN PO ORDERED. PT INSTRUCTED ON MED. VERBALIZES UNDERSTANDING.
--- NOTE | 2019-03-03 14:24 | NUR ---
PT AMBULATORY IN HALLS. REQUESTS AND RECEIVES ICE WATER.
--- NOTE | 2019-03-03 15:20 | NUR ---
DISCHARGE INSTRUCTIONS GIVEN TO PT. PT VERBALIZES UNDERSTANDING OF ALL INSTRUCTIONS. COPIES GIVEN TO PT. PT GIVEN MMR 0.5 ML TO LEFT OUTER ARM. BANDAID TO SITE. PT [place] WELL. RX FOR IRON, PERCOCET AND CLINDAMYCIN GIVEN TO PT.
--- NOTE | 2019-03-03 16:20 | NUR ---
PT READY FOR DISCHARGE. DISCHARGED IN STABLE CONDITION VIA WHEELCHAIR TO PRIVATE VEHICLE. FOB CARRIES INFANT SECURED IN [place]. BOTH AND PT ED[place] WELL.
== END 2019-03-03 16:20 | disposition home or self-care (01) | DRG 788 ==
LOC: D.LD 05:19
PROVIDERS: ADMIT Obstetrics & Gynecology; ATTEND Obstetrics & Gynecology
PROC: 0DNW0ZZ Release Peritoneum, Open Approach (ICD-10-PCS; 2019-02-28)
PROC: 10D00Z1 Extraction of Products of Conception, Low, Open Approach (ICD-10-PCS; principal; 2019-02-28 07:30)
DX: O99.89 Other specified diseases and conditions complicating pregnancy, childbirth and the puerperium (principal); N73.6 Female pelvic peritoneal adhesions (postinfective); Z3A.38 38 weeks gestation of pregnancy; Z37.0 Single live birth; O34.211 Maternal care for low transverse scar from previous cesarean delivery

== ENCOUNTER 2020-05-13 19:30 | Outpatient (CLI) | payer OTHER ==
[2019-02-28 05:29] VITALS: BMI 37.5
[~2020-05-13 19:30] MED LIST changes: +CLEOCIN HCL300 MG PO; +PERCOCET 7.5/321 TAB PO; +TANDEM DUAL AC106 MG PO
== END 2020-05-13 23:59 | disposition home or self-care (01) ==
LOC: D.MAMMO 19:30
PROVIDERS: ATTEND Obstetrics & Gynecology
DX: Z12.31 Encounter for screening mammogram for malignant neoplasm of breast (principal)